=== PATIENT | male | born 1995 | race Caucasian/White ===

== ENCOUNTER 2021-07-28 14:00 | Outpatient (CLI) | payer BC, SELFPAY ==
[2021-07-28 15:50] LABS: SARS-CoV-2 RNA PCR Negative (Negative)
== END 2021-07-28 14:01 | disposition home or self-care (01) ==
PROVIDERS: PCP Internal Medicine; Visit Provider Internal Medicine
DX: Z20.822 Contact with and (suspected) exposure to COVID-19 (principal)
CPT/HCPCS: C9803; U0003; U0005